=== PATIENT | male | born 1955 | race Caucasian/White ===

== ENCOUNTER → 2021-05-02 | Outpatient (CLI) | payer MEDICARE ==
[~2021-05-02] MED LIST: NORFLEX 100 MG100 MG PO; PREDNISONE 50 M50 MG PO; Voltaren Gel 1 % TOP
== END ==
LOC: HEART 5 11:02
DX: J44.9 Chronic obstructive pulmonary disease, unspecified (principal); J90 Pleural effusion, not elsewhere classified; R09.02 Hypoxemia; I70.0 Atherosclerosis of aorta; S22.42XA Multiple fractures of ribs, left side, initial encounter for closed fracture; F17.210 Nicotine dependence, cigarettes, uncomplicated
CPT/HCPCS: 36415; 36600; 71046; 82803; 94060; 94729

== ENCOUNTER → 2021-05-02 | Outpatient (CLI) | payer MEDICARE | LOC: RAD 12:54 | DX: Z53.09 Procedure and treatment not carried out because of other contraindication (principal) | CPT/HCPCS: 36415; 36600; 71046; 82803 ==